=== PATIENT | male | born 1970 | race Caucasian/White ===

== ENCOUNTER 2022-03-11 13:16 | Emergency (ER) | payer SELFPAY ==
[2022-03-11] VITALS (9 sets, daily range): BP systolic 150–179; BP diastolic 89–110; PULSE 65–90; RESP 18; TEMP 36.2–36.6; O2SAT 96–98; BMI 23.7
--- NOTE | 2022-03-11 13:49 | ED_ITS ---
HPI - Abdominal Pain General Time Seen by Provider: 13:49 <Lizet Donis MD - Last Filed: 03/11/22 15:54> Date Seen: 03/11/22 <Lizet Donis MD - Last Filed: 03/11/22 15:54> Chief Complaint: Abdominal Pain <Lizet Donis MD - Last Filed: 03/11/22 15:54> Stated Complaint: Abdominal Pain <Lizet Donis MD - Last Filed: 03/11/22 15:54> Time Seen by Provider: 03/11/22 13:34 <Lizet Donis MD - Last Filed: 03/11/22 15:54> Source: patient and RN notes reviewed <Lizet Donis MD - Last Filed: 03/11/22 15:54> Mode of arrival: ambulatory <Lizet Donis MD - Last Filed: 03/11/22 15:54> History of Present Illness HPI narrative: This 51-year-old male is coming in with epigastric pain that is generalized in. He has pain in his abdomen that has been there for maybe 13 or 14 days now. He did go to clinic yesterday and reportedly had what he states was a normal CT of his abdomen and pelvis. He states he drank water and had IV contrast. He was started on omeprazole yesterday, has taken 2 doses without relief. Prior to this he has tried Tylenol, ibuprofen, Rolaids/Tums without relief. He is having no reflux or regurgitation symptoms. Eating makes his symptoms worse, has not had nausea with this. Has had some vomiting prior. But not now. He has had some constipation and does endorse some irregular bowel movements but did have a normal bowel movement earlier. No blood in vomit or bowels. He does note historically he has had some blood in bowel movements. He has never had a colonoscopy. There has been no fevers. At times he has felt chilled. He had not noticed any urinary symptoms until after he had the IV contrast and drink water yesterday, has noticed some urgency. He points right to the epigastric area and states now it is starting to generalize out into the abdomen. He states he had labs done yesterday as well. Patient has never had any abdominal surgery. He is not aware of any family history that relates to abdominal pain. He has drank maybe 3 or 4 times in the last 3 months but does endorse that he has had a significant history of drinking. He states he has been actively trying to cut down. I have his CT reports from yesterday done with oral water and IV contrast with the impression no bowel obstruction or evidence of enteritis/colitis. 2 cm hypodense pancreatic body lesion. Pre and post-contrast MRI of the pancreas recommended. His labs from yesterday showed sodium of 136 potassium 4.8 glucose of 90 creatinine of 0.74 with a GFR greater than 90 white blood count mildly elevated at 13,800 thousand eight hundred hemoglobin good at 15.1 ALT of 19 AST of 16 total bilirubin 0.3 alkaline phosphatase 79 lipase at 65.7. C-reactive protein 0.28 sed rate at 24 <Lizet Donis MD - Last Filed: 03/11/22 15:54> Related Data Home Medications: Home Medications Medication Instructions Recorded Confirmed omeprazole 20 mg capsule,delayed 20 mg PO DAILY 03/11/22 03/11/22 release <Lizet Donis MD - Last Filed: 03/11/22 15:54> Allergies/Adverse Reactions: Allergies Allergy/AdvReac Type Severity Reaction Status Date / Time codeine Allergy Verified 03/11/22 13:30 <Lizet Donis MD - Last Filed: 03/11/22 15:54> [facility] Social History: Social History Smoking Status: Current every day smoker What tobacco products do you use: cigarettes Smoking packs per day: 1.5 Smoking cigarettes per day: 30.0 Years smoked: 40 Smoking pack-years: 60.00 Do you use any of these nicotine containing products: None Second hand tobacco smoke exposure: Yes How often do you have a drink containing alcohol: monthly or less How many standard drinks containing alcohol do you have on a typical day: 7 to 9 How often do you have six or more drinks on one occasion: Less than monthly AUDIT-C Alcohol total score: 5 Non-prescribed substance use: denies use service: No <Lizet Donis MD - Last Filed: 03/11/22 15:54> Exam Const: Vital Signs, click to edit/add: Vital Signs - 24 hr 03/11/22 13:31 Temperature 97.8 F Pulse Rate [Right Pulse Oximeter] 90 Respiratory Rate 18 Blood Pressure [Ri ght Upper Arm] 151/95 H Pulse Oximetry 97 Oxygen Delivery Me thod Room Air <Lizet Donis MD - Last Filed: 03/11/22 15:54> Vital Signs, click to edit/add: Vital Signs - 24 hr 03/11/22 13:31 Temperature 97.8 F Pulse Rate [Right Pulse Oximeter] 90 Respiratory Rate 18 Blood Pressure [Ri ght Upper Arm] 151/95 H Pulse Oximetry 97 Oxygen Delivery Me thod Room Air <Janet Yoder MD - Last Filed: 03/15/22 11:52> Course Reevaluation(s) Reevaluation #1: Reviewed with him that his lipase would seemingly be escalating from yesterday's lab. He is now slightly elevated at 305. Rest of his labs here are looking normal albeit troponin is still pending. Am doubtful that this is cardiac etiology however. We are going to proceed with MRI with and without contrast due to this pancreatic lesion. Patient is in agreement to proceed. His pain is improved but still significant thus I will re-dose the fentanyl. <Lizet Donis MD - Last Filed: 03/11/22 15:54> Time: 15:09 <Lizet Donis MD - Last Filed: 03/11/22 15:54> Reevaluation #2: Reviewed MRI results with patient. Cystic lesion in tail of pancreas, indeterminate. Unlikely the cause of his pain at this time. Pain has been constant for 2 weeks, would doubt that this is gallbladder in etiology. Gastric ulcer or gastritis seems more likely at this time all things considered with otherwise negative CT. Recommendation at this time is to continue with the PPI, follow up with his primary doctor as planned. Consider EGD not improving. He will need follow-up with a hepatobiliary surgeon per our surgeon recommendation. If worsening in the interim, return to the emergency department. <Janet Yoder MD - Last Filed: 03/15/22 11:52> Consultations Consultation #1: Discussed care with iris Vanessa for general surgery. She did not feel that pancreatic lesion was likely the cause of his symptoms based on its location and description. Recommendation was for outpatient follow-up with hepatobiliary surgeon, and that this would be best achieved through primary care followup 1st. <Janet Yoder MD - Last Filed: 03/15/22 11:52> Vital Signs Vital signs: Initial Vital Signs Temperature 97.8 F 03/11/22 13:31 Temperature Source Temporal Artery Scan 03/11/22 13:31 Pulse Rate 90 03/11/22 13:31 Respiratory Rate 18 03/11/22 13:31 Blood Pressure 151/95 H 03/11/22 13:31 Blood Pressure Mean 113 03/11/22 13:31 Blood Pressure Position Sitting 03/11/22 13:31 Pulse Oximetry 97 03/11/22 13:31 Oxygen Delivery Method 03/11/22 13:31 Vital Signs Temperature 97.8 F 03/11/22 13:31 Pulse Rate 90 03/11/22 13:31 Respiratory Rate 18 03/11/22 13:31 Blood Pressure 151/95 H 03/11/22 13:31 Pulse Oximetry 97 03/11/22 13:31 Oxygen Delivery Method 03/11/22 13:31 Temperature 97.2 F L 03/11/22 15:30 Pulse Rate 65 03/11/22 18:30 Respiratory Rate 18 03/11/22 16:30 Blood Pressure 168/105 H 03/11/22 18:30 Pulse Oximetry 97 03/11/22 18:30 Oxygen Delivery Method 03/11/22 17:30 <Lizet Donis MD - Last Filed: 03/11/22 15:54> Initial Vital Signs Temperature 97.8 F 03/11/22 13:31 Temperature Source Temporal Artery Scan 03/11/22 13:31 Pulse Rate 90 03/11/22 13:31 Respiratory Rate 18 03/11/22 13:31 Blood Pressure 151/95 H 03/11/22 13:31 Blood Pressure Mean 113 03/11/22 13:31 Blood Pressure Position Sitting 03/11/22 13:31 Pulse Oximetry 97 03/11/22 13:31 Oxygen Delivery Method 03/11/22 13:31 Vital Signs Temperature 97.8 F 03/11/22 13:31 Pulse Rate 90 03/11/22 13:31 Respiratory Rate 18 03/11/22 13:31 Blood Pressure 151/95 H 03/11/22 13:31 Pulse Oximetry 97 03/11/22 13:31 Oxygen Delivery Method 03/11/22 13:31 Temperature 97.2 F L 03/11/22 15:30 Pulse Rate 65 03/11/22 18:30 Respiratory Rate 18 03/11/22 16:30 Blood Pressure 168/105 H 03/11/22 18:30 Pulse Oximetry 97 03/11/22 18:30 Oxygen Delivery Method 03/11/22 17:30 <Janet Yoder MD - Last Filed: 03/15/22 11:52> MDM - Abdominal Pain Lab Data Attestation: I reviewed the patient's lab results. <Lizet Donis MD - Last Filed: 03/11/22 15:54> Labs: Lab Results 03/11/22 03/11/22 03/11/22 Range/Units 14:00 14:00 14:00 WBC 10.53 (4.50-11.00) K/uL RBC 4.16 L (4.30-5.90) m/uL Hgb 13.2 L (13.5-17.5) gm/dL Hct 38.1 (37.0-53.0) % MCV 92 (80-100) fL MCH 32 (26-34) pg MCHC 35 (32-36) gm/dL RDW Coeff of Spring 13.4 (11.5-15.5) % Plt Count 273 (140-440) K/uL Neut % (Auto) 71.8 (42.0-72.0) % Lymph % (Auto) 17.0 L (20-44) % Harvey % (Auto) 9.3 (0.0-11.0) % Eos % (Auto) 0.8 (0.0-7.0) % Baso % (Auto) 0.5 (0.0-3.0) % Neut # (Auto) 7.57 H (1.7-7.0) K/uL Lymph # (Auto) 1.80 (0.90-2.90) K/uL Harvey # (Auto) 1.00 H (0.00-0.90) K/UL Eos # (Auto) 0.08 (0.00-0.50) K/uL Baso # (Auto) 0.05 (0.00-0.30) K/uL Abs Immat Gran (auto) 0.06 (0.00-0.30) K/uL ESR 13 (2-15) mm/hr Sodium 133 L (135-149) mmol/L Potassium 3.6 (3.6-5.1) mmol/L Chloride 102 (96-114) mmol/L Carbon Dioxide 24 (20-32) mmol/L BUN 8 (7-30) mg/dL Creatinine 0.6 (0.5-1.5) mg/dL Estimated Creat Clear 161.67 Estimated GFR 118 ml/min Glucose 115 (60-115) mg/dL Lactate (0.5-1.9) mmol/L Calcium 8.9 (8.4-10.6) mg/dL Total Bilirubin 0.5 (0.1-1.5) mg/dL AST 21 (12-35) U/L ALT 15 (4-50) U/L Alkaline Phosphatase 99 (40-150) U/L Troponin I (0.01-0.04) ng/mL C-Reactive Protein 1.4 H (0.5-1.0) mg/dL Total Protein 7.1 (6.0-8.3) g/dL Albumin 3.8 (3.3-5.0) g/dL Lipase 305 H (23-300) U/L Urine Color (Yellow) Urine Appearance (Clear) Urine pH (5.0-8.5) Ur Specific [place] (1.000-1.030) Urine Protein (Negative) Urine Glucose (UA) (Negative) Urine Ketones (Negative) Urine Blood (Negative) Urine Nitrite (Negative) Urine Bilirubin (Negative) Urine Urobilinogen (0.2-1.0) Ur Leukocyte Esterase (Negative) Urine RBC (0-2) Urine WBC (0-5) Ur Squamous Epith Cells (None-Few) Urine Bacteria (None) Hyaline Casts (None-Few) Ethyl Alcohol < 0.01 L (0.01-0.03) % SARS-CoV-2 (PCR) (Negative) 03/11/22 03/11/22 03/11/22 Range/Units 14:00 14:00 14:09 WBC (4.50-11.00) K/uL RBC (4.30-5.90) m/uL Hgb (13.5-17.5) gm/dL Hct (37.0-53.0) % MCV (80-100) fL MCH (26-34) pg MCHC (32-36) gm/dL RDW Coeff of Spring (11.5-15.5) % Plt Count (140-440) K/uL Neut % (Auto) (42.0-72.0) % Lymph % (Auto) (20-44) % Harvey % (Auto) (0.0-11.0) % Eos % (Auto) (0.0-7.0) % Baso % (Auto) (0.0-3.0) % Neut # (Auto) (1.7-7.0) K/uL Lymph # (Auto) (0.90-2.90) K/uL Harvey # (Auto) (0.00-0.90) K/UL Eos # (Auto) (0.00-0.50) K/uL Baso # (Auto) (0.00-0.30) K/uL Abs Immat Gran (auto) (0.00-0.30) K/uL ESR (2-15) mm/hr Sodium (135-149) mmol/L Potassium (3.6-5.1) mmol/L Chloride (96-114) mmol/L Carbon Dioxide (20-32) mmol/L BUN (7-30) mg/dL Creatinine (0.5-1.5) mg/dL Estimated Creat Clear Estimated GFR ml/min Glucose (60-115) mg/dL Lactate 0.6 (0.5-1.9) mmol/L Calcium (8.4-10.6) mg/dL Total Bilirubin (0.1-1.5) mg/dL AST (12-35) U/L ALT (4-50) U/L Alkaline Phosphatase (40-150) U/L Troponin I < 0.01 L (0.01-0.04) ng/mL C-Reactive Protein (0.5-1.0) mg/dL Total Protein (6.0-8.3) g/dL Albumin (3.3-5.0) g/dL Lipase (23-300) U/L Urine Color (Yellow) Urine Appearance (Clear) Urine pH (5.0-8.5) Ur Specific [place] (1.000-1.030) Urine Protein (Negative) Urine Glucose (UA) (Negative) Urine Ketones (Negative) Urine Blood (Negative) Urine Nitrite (Negative) Urine Bilirubin (Negative) Urine Urobilinogen (0.2-1.0) Ur Leukocyte Esterase (Negative) Urine RBC (0-2) Urine WBC (0-5) Ur Squamous Epith Cells (None-Few) Urine Bacteria (None) Hyaline Casts (None-Few) Ethyl Alcohol (0.01-0.03) % SARS-CoV-2 (PCR) Negative SARS-CoV-2 (Negative) 03/11/22 Range/Units 14:15 WBC (4.50-11.00) K/uL RBC (4.30-5.90) m/uL Hgb (13.5-17.5) gm/dL Hct (37.0-53.0) % MCV (80-100) fL MCH (26-34) pg MCHC (32-36) gm/dL RDW Coeff of Spring (11.5-15.5) % Plt Count (140-440) K/uL Neut % (Auto) (42.0-72.0) % Lymph % (Auto) (20-44) % Harvey % (Auto) (0.0-11.0) % Eos % (Auto) (0.0-7.0) % Baso % (Auto) (0.0-3.0) % Neut # (Auto) (1.7-7.0) K/uL Lymph # (Auto) (0.90-2.90) K/uL Harvey # (Auto) (0.00-0.90) K/UL Eos # (Auto) (0.00-0.50) K/uL Baso # (Auto) (0.00-0.30) K/uL Abs Immat Gran (auto) (0.00-0.30) K/uL ESR (2-15) mm/hr Sodium (135-149) mmol/L Potassium (3.6-5.1) mmol/L Chloride (96-114) mmol/L Carbon Dioxide (20-32) mmol/L BUN (7-30) mg/dL Creatinine (0.5-1.5) mg/dL Estimated Creat Clear Estimated GFR ml/min Glucose (60-115) mg/dL Lactate (0.5-1.9) mmol/L Calcium (8.4-10.6) mg/dL Total Bilirubin (0.1-1.5) mg/dL AST (12-35) U/L ALT (4-50) U/L Alkaline Phosphatase (40-150) U/L Troponin I (0.01-0.04) ng/mL C-Reactive Protein (0.5-1.0) mg/dL Total Protein (6.0-8.3) g/dL Albumin (3.3-5.0) g/dL Lipase (23-300) U/L Urine Color Yellow (Yellow) Urine Appearance Clear (Clear) Urine pH 7.0 (5.0-8.5) Ur Specific [place] 1.020 (1.000-1.030) Urine Protein Negative (Negative) Urine Glucose (UA) Negative (Negative) Urine Ketones 2+ A (Negative) Urine Blood Trace-intact A (Negative) Urine Nitrite Negative (Negative) Urine Bilirubin Negative (Negative) Urine Urobilinogen 0.2 (0.2-1.0) Ur Leukocyte Esterase Negative (Negative) Urine RBC 2-5 A (0-2) Urine WBC 0-2 (0-5) Ur Squamous Epith Cells None (None-Few) Urine Bacteria None (None) Hyaline Casts Few (None-Few) Ethyl Alcohol (0.01-0.03) % SARS-CoV-2 (PCR) (Negative) <Lizet Donis MD - Last Filed: 03/11/22 15:54> Lab Results 03/11/22 03/11/22 03/11/22 Range/Units 14:00 14:00 14:00 WBC 10.53 (4.50-11.00) K/uL RBC 4.16 L (4.30-5.90) m/uL Hgb 13.2 L (13.5-17.5) gm/dL Hct 38.1 (37.0-53.0) % MCV 92 (80-100) fL MCH 32 (26-34) pg MCHC 35 (32-36) gm/dL RDW Coeff of Spring 13.4 (11.5-15.5) % Plt Count 273 (140-440) K/uL Neut % (Auto) 71.8 (42.0-72.0) % Lymph % (Auto) 17.0 L (20-44) % Harvey % (Auto) 9.3 (0.0-11.0) % Eos % (Auto) 0.8 (0.0-7.0) % Baso % (Auto) 0.5 (0.0-3.0) % Neut # (Auto) 7.57 H (1.7-7.0) K/uL Lymph # (Auto) 1.80 (0.90-2.90) K/uL Harvey # (Auto) 1.00 H (0.00-0.90) K/UL Eos # (Auto) 0.08 (0.00-0.50) K/uL Baso # (Auto) 0.05 (0.00-0.30) K/uL Abs Immat Gran (auto) 0.06 (0.00-0.30) K/uL ESR 13 (2-15) mm/hr Sodium 133 L (135-149) mmol/L Potassium 3.6 (3.6-5.1) mmol/L Chloride 102 (96-114) mmol/L Carbon Dioxide 24 (20-32) mmol/L BUN 8 (7-30) mg/dL Creatinine 0.6 (0.5-1.5) mg/dL Estimated Creat Clear 161.67 Estimated GFR 118 ml/min Glucose 115 (60-115) mg/dL Lactate (0.5-1.9) mmol/L Calcium 8.9 (8.4-10.6) mg/dL Total Bilirubin 0.5 (0.1-1.5) mg/dL AST 21 (12-35) U/L ALT 15 (4-50) U/L Alkaline Phosphatase 99 (40-150) U/L Troponin I (0.01-0.04) ng/mL C-Reactive Protein 1.4 H (0.5-1.0) mg/dL Total Protein 7.1 (6.0-8.3) g/dL Albumin 3.8 (3.3-5.0) g/dL Lipase 305 H (23-300) U/L Urine Color (Yellow) Urine Appearance (Clear) Urine pH (5.0-8.5) Ur Specific [place] (1.000-1.030) Urine Protein (Negative) Urine Glucose (UA) (Negative) Urine Ketones (Negative) Urine Blood (Negative) Urine Nitrite (Negative) Urine Bilirubin (Negative) Urine Urobilinogen (0.2-1.0) Ur Leukocyte Esterase (Negative) Urine RBC (0-2) Urine WBC (0-5) Ur Squamous Epith Cells (None-Few) Urine Bacteria (None) Hyaline Casts (None-Few) Ethyl Alcohol < 0.01 L (0.01-0.03) % SARS-CoV-2 (PCR) (Negative) 03/11/22 03/11/22 03/11/22 Range/Units 14:00 14:00 14:09 WBC (4.50-11.00) K/uL RBC (4.30-5.90) m/uL Hgb (13.5-17.5) gm/dL Hct (37.0-53.0) % MCV (80-100) fL MCH (26-34) pg MCHC (32-36) gm/dL RDW Coeff of Spring (11.5-15.5) % Plt Count (140-440) K/uL Neut % (Auto) (42.0-72.0) % Lymph % (Auto) (20-44) % Harvey % (Auto) (0.0-11.0) % Eos % (Auto) (0.0-7.0) % Baso % (Auto) (0.0-3.0) % Neut # (Auto) (1.7-7.0) K/uL Lymph # (Auto) (0.90-2.90) K/uL Harvey # (Auto) (0.00-0.90) K/UL Eos # (Auto) (0.00-0.50) K/uL Baso # (Auto) (0.00-0.30) K/uL Abs Immat Gran (auto) (0.00-0.30) K/uL ESR (2-15) mm/hr Sodium (135-149) mmol/L Potassium (3.6-5.1) mmol/L Chloride (96-114) mmol/L Carbon Dioxide (20-32) mmol/L BUN (7-30) mg/dL Creatinine (0.5-1.5) mg/dL Estimated Creat Clear Estimated GFR ml/min Glucose (60-115) mg/dL Lactate 0.6 (0.5-1.9) mmol/L Calcium (8.4-10.6) mg/dL Total Bilirubin (0.1-1.5) mg/dL AST (12-35) U/L ALT (4-50) U/L Alkaline Phosphatase (40-150) U/L Troponin I < 0.01 L (0.01-0.04) ng/mL C-Reactive Protein (0.5-1.0) mg/dL Total Protein (6.0-8.3) g/dL Albumin (3.3-5.0) g/dL Lipase (23-300) U/L Urine Color (Yellow) Urine Appearance (Clear) Urine pH (5.0-8.5) Ur Specific [place] (1.000-1.030) Urine Protein (Negative) Urine Glucose (UA) (Negative) Urine Ketones (Negative) Urine Blood (Negative) Urine Nitrite (Negative) Urine Bilirubin (Negative) Urine Urobilinogen (0.2-1.0) Ur Leukocyte Esterase (Negative) Urine RBC (0-2) Urine WBC (0-5) Ur Squamous Epith Cells (None-Few) Urine Bacteria (None) Hyaline Casts (None-Few) Ethyl Alcohol (0.01-0.03) % SARS-CoV-2 (PCR) Negative SARS-CoV-2 (Negative) 03/11/22 Range/Units 14:15 WBC (4.50-11.00) K/uL RBC (4.30-5.90) m/uL Hgb (13.5-17.5) gm/dL Hct (37.0-53.0) % MCV (80-100) fL MCH (26-34) pg MCHC (32-36) gm/dL RDW Coeff of Spring (11.5-15.5) % Plt Count (140-440) K/uL Neut % (Auto) (42.0-72.0) % Lymph % (Auto) (20-44) % Harvey % (Auto) (0.0-11.0) % Eos % (Auto) (0.0-7.0) % Baso % (Auto) (0.0-3.0) % Neut # (Auto) (1.7-7.0) K/uL Lymph # (Auto) (0.90-2.90) K/uL Harvey # (Auto) (0.00-0.90) K/UL Eos # (Auto) (0.00-0.50) K/uL Baso # (Auto) (0.00-0.30) K/uL Abs Immat Gran (auto) (0.00-0.30) K/uL ESR (2-15) mm/hr Sodium (135-149) mmol/L Potassium (3.6-5.1) mmol/L Chloride (96-114) mmol/L Carbon Dioxide (20-32) mmol/L BUN (7-30) mg/dL Creatinine (0.5-1.5) mg/dL Estimated Creat Clear Estimated GFR ml/min Glucose (60-115) mg/dL Lactate (0.5-1.9) mmol/L Calcium (8.4-10.6) mg/dL Total Bilirubin (0.1-1.5) mg/dL AST (12-35) U/L ALT (4-50) U/L Alkaline Phosphatase (40-150) U/L Troponin I (0.01-0.04) ng/mL C-Reactive Protein (0.5-1.0) mg/dL Total Protein (6.0-8.3) g/dL Albumin (3.3-5.0) g/dL Lipase (23-300) U/L Urine Color Yellow (Yellow) Urine Appearance Clear (Clear) Urine pH 7.0 (5.0-8.5) Ur Specific [place] 1.020 (1.000-1.030) Urine Protein Negative (Negative) Urine Glucose (UA) Negative (Negative) Urine Ketones 2+ A (Negative) Urine Blood Trace-intact A (Negative) Urine Nitrite Negative (Negative) Urine Bilirubin Negative (Negative) Urine Urobilinogen 0.2 (0.2-1.0) Ur Leukocyte Esterase Negative (Negative) Urine RBC 2-5 A (0-2) Urine WBC 0-2 (0-5) Ur Squamous Epith Cells None (None-Few) Urine Bacteria None (None) Hyaline Casts Few (None-Few) Ethyl Alcohol (0.01-0.03) % SARS-CoV-2 (PCR) (Negative) <Janet Yoder MD - Last Filed: 03/15/22 11:52> ECG Data Attestation: I personally reviewed and interpreted this ECG as follows: (Sinus rhythm with sinus arrhythmia, 79 beats per minute. No ischemia noted.) <Lizet Donis MD - Last Filed: 03/11/22 15:54> ECG interpretation date: 03/11/22 <Lizet Donis MD - Last Filed: 03/11/22 15:54> Discharge Plan Discharge Clinical Impression: Acute epigastric pain <Lizet Donis MD - Last Filed: 03/11/22 15:54> Patient Disposition: Home, Self-Care <Lizet Donis MD - Last Filed: 03/11/22 15:54> Condition: Stable <Lizet Donis MD - Last Filed: 03/11/22 15:54> Instructions: Epigastric Pain (ED) <Lizet Donis MD - Last Filed: 03/11/22 15:54> Additional Instructions: Follow-up tomorrow as planned in clinic. Please ask them to help arrange follow-up with a hepato-biliary surgeon. Radiology read for your abdominal MRI attached. Continue the omeprazole as recommended. Avoid NSAIDs for now. Avoid alcohol. Currently, your labs and imaging do not suggest significant pancreatic inflammation, however if you have significant worsening pain, vomiting, fever or other worsening, return to the emergency department. <Lizet Donis MD - Last Filed: 03/11/22 15:54> Prescriptions: No Action omeprazole 20 mg capsule,delayed release(DR/EC) 20 mg PO DAILY <Lizet Donis MD - Last Filed: 03/11/22 15:54> Follow Up/Referrals: Provider,Not a Local [Primary Care Provider] - <Lizet Donis MD - Last Filed: 03/11/22 15:54> Stand Alone Forms: [employer] Info Instructions <Lizet Donis MD - Last Filed: 03/11/22 15:54>
[2022-03-11 14:12] LABS: Lactate* 0.6 mmol/L (0.5-1.9)
[2022-03-11] MEDS: 0.9 % SODIUM CHLORIDE 1000 ml 1,000 ML 500 ML IV (14:20)
[2022-03-11] MEDS: ONDANSETRON 2 MG/ML inj 4 MG IVP (14:21)
[2022-03-11] MEDS: fentaNYL 100 MCG/2 ML inj 50 MCG IVP ×2 (14:23→15:32)
[2022-03-11 14:30] LABS: Basophils Absolute Auto 0.05 K/uL (0.00-0.30); Basophils Percent Auto 0.5 % (0.0-3.0); Eosinophils Absolute Auto 0.08 K/uL (0.00-0.50); Eosinophils Percent Auto 0.8 % (0.0-7.0); Hematocrit 38.1 % (37.0-53.0); Hemoglobin* 13.2 gm/dL (13.5-17.5); Immature Granulocytes Abs Auto 0.06 K/uL (0.00-0.30); Mean Corpuscular HGB Conc 35 gm/dL (32-36); Mean Corpuscular Hemoglobin 32 pg (26-34); Mean Corpuscular Volume 92 fL (80-100); Monocytes Percent Auto 9.3 % (0.0-11.0); Neutrophils Absolute Auto 7.57 K/uL (1.7-7.0); Neutrophils Percent Auto 71.8 % (42.0-72.0); Platelet Count* 273 K/uL (140-440); RDW Coefficient of Variation % 13.4 % (11.5-15.5); Red Blood Count 4.16 m/uL (4.30-5.90); White Blood Count* 10.53 K/uL (4.50-11.00)
[2022-03-11 14:35] LABS: Slide Review Reflex No
[2022-03-11 14:40] LABS: Appearance Urine Clear (Clear); Bilirubin Urine Negative (Negative); Blood Urine Trace-intact (Negative); Color Urine Yellow (Yellow); Glucose Urine Negative (Negative); Ketones Urine 2+ (Negative); Leukocyte Esterase Urine Negative (Negative); Nitrite Urine Negative (Negative); Protein Urine Negative (Negative); Urobilinogen Urine 0.2 (0.2-1.0)
[2022-03-11 14:41] LABS: Albumin* 3.8 g/dL (3.3-5.0); Chloride* 102 mmol/L (96-114); Sodium* 133 mmol/L (135-149)
[2022-03-11 14:42] LABS: Potassium* 3.6 mmol/L (3.6-5.1)
[2022-03-11 14:44] LABS: Alkaline Phosphatase* 99 U/L (40-150); Aspartate Amino Transferase* 21 U/L (12-35); Bilirubin Total* 0.5 mg/dL (0.1-1.5); Carbon Dioxide* 24 mmol/L (20-32); Creatinine* 0.6 mg/dL (0.5-1.5); Est. Creatinine Clearance* 161.67; Estimated Glomerular Filt Rate 118 ml/min; Total Protein* 7.1 g/dL (6.0-8.3)
[2022-03-11 14:45] LABS: Alanine Aminotransferase* 15 U/L (4-50); Blood Urea Nitrogen* 8 mg/dL (7-30); Calcium* 8.9 mg/dL (8.4-10.6); Glucose* 115 mg/dL (60-115); Lipase* 305 U/L (23-300)
[2022-03-11 14:47] LABS: C Reactive Protein* 1.4 mg/dL (0.5-1.0)
[2022-03-11 14:48] LABS: Ethanol* < 0.01 % (0.01-0.03)
[2022-03-11 15:03] LABS: SARS PCR* Negative SARS-CoV-2 (Negative)
--- NOTE | 2022-03-11 15:04 | CRLHL7_ITS ---
For Patients: As a result of the Century Cures Act, medical imaging exams and procedure reports are released immediately into your electronic medical record. You may view this report before your referring provider. If you have questions, please contact your health care provider. INDICATION: Worsening epigastric pain. 2 cm mass on pancreas CT done at [facility]. TECHNIQUE: MRI of the abdomen was performed with the following sequences: axial and coronal HASTE, axial T2 fat saturated, axial diffusion, axial T1 in and out of phase, 3-point [place], multiecho T2*, axial and coronal 3D T1 weighted before and after intravenous contrast administration, and coronal thin slab MRCP 3D. Contrast: 15 mL of Dotarem. COMPARISON: None. FINDINGS: Lower chest: Unremarkable. Liver: The signal intensity of the liver is normal. No dropout between in- and opposed phase to suggest steatosis. No T2 hyperintense or enhancing lesions. Gallbladder and bile ducts: Normally distended gallbladder. No T2 filling defects to suggest gallstones. No wall thickening or pericholecystic fluid. The common bile duct is normal in caliber. Spleen: Unremarkable. Small adjacent splenule. Pancreas: Normal parenchymal enhancement. No enhancing masses. Lesion in the pancreatic tail is homogeneously T2 hyperintense and measures approximately 2.1 x 1.5 cm (6/20). This lesion does not show enhancement on the post-contrast images. The MRCP sequences shows that this lesion does not connect to the main pancreatic duct. No areas of nodularity or apparent internal septations. Adrenal glands: Unremarkable. No nodules. Kidneys and Ureters: Normal size. Symmetric cortical enhancement. No solid or cystic masses. No hydronephrosis. Lymph Nodes and Retroperitoneum: Unremarkable. Vasculature: Unremarkable. GI tract: Unremarkable. Normal in caliber. Peritoneum/Abdominal Wall: Unremarkable. No mass or infiltration. No free air or free fluid. Bones: No abnormal marrow signal. IMPRESSION: 1. Simple appearing cystic lesion in the pancreatic tail does not connect to the main pancreatic duct. Differential possibilities include epithelial pancreatic cyst or possibly unilocular serous cystic neoplasm. Location within the pancreatic parenchyma makes a pseudocyst from prior pancreatitis is possible but unlikely. Mucinous cystic neoplasm or IPMN are less likely. 2. No other significant MRI abnormality in the abdomen. Dictated by Prabhjot Hernadez MD @ 03/11/2022 5:52:03 PM (Electronically Signed)
[2022-03-11 15:15] LABS: Troponin I* < 0.01 ng/mL (0.01-0.04)
[2022-03-11 15:57] LABS: Hyaline Casts Urine Few (None-Few); WBC Urine 0-2 (0-5)
[2022-03-11] MEDS: MORPHINE 4 MG/ML INJ IVP (16:05)
[2022-03-11 16:37] LABS: Erythrocyte SedimentationRate* 13 mm/hr (2-15)
--- NOTE | 2022-03-11 16:45 | ED.NURSE ---
Patient to radiology for MRI, wheelchair.
--- NOTE | 2022-03-11 17:26 | ED.NURSE ---
Patient returned from MRI.
== END 2022-03-11 18:59 | disposition home or self-care (01) ==
PROVIDERS: Family Medicine; Emergency Provider Emergency Medicine
DX: R10.13 Epigastric pain (principal)
CPT/HCPCS: 36415; 74183; 80053; 81001; 82077; 83605; 83690; 84484; 85025; 85651; 86140; 87635; 93005; 96374; 96375; 96376; 99284; 99285; A9575; J2270; J2405; J3010; J7030

== ENCOUNTER 2025-03-03 00:54 | Outpatient (CLI) | payer MEDICAID, SELFPAY | END 2025-03-03 00:55 | disposition home or self-care (01) | LOC: AMB 03-09 09:29 | PROVIDERS: Visit Provider Family Medicine | DX: S09.90XA Unspecified injury of head, initial encounter (principal); Y04.2XXA Assault by strike against or bumped into by another person, initial encounter; Y93.9 Activity, unspecified; Y92.89 Other specified places as the place of occurrence of the external cause | CPT/HCPCS: A0425; A0427 ==

== ENCOUNTER 2025-03-03 01:39 | Emergency (ER) | payer MEDICAID, SELFPAY ==
[2025-03-03 01:40] VITALS: BP 125/85; PULSE 100; RESP 18; TEMP 36.7; O2SAT 96; BMI 24.4
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
--- OUTSIDE RECORDS SUMMARY | 2025-03-03 01:41 | XMS_ITS | Clinical Summary ---
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 [facility] Allergies No known active allergies Medications ibuprofen (MOTRIN) 200 MG tablet Take 1-2 Tablets (200-400 mg) by mouth every 6 hours as needed for Pain. Active polyethylene glycol 3350 (GLYCOLAX) 17 GM/SCOOP powderIndicatio ns:Constipation Fill to top of indicated section in lid (17 grams). Mix in 4 to 8 ounces of a beverage and drink once daily as directed. Indications: Constipation 510 g 3 10/08/2023 1:02 PM CDT 4 Active sennosides-docu sate sodium (SENOKOT S) 8.6-50 MG per tabletIndicatio ns:Constipation Take 1 Tablet by mouth daily as needed for Constipation. Indications: Constipation 90 Tablet 3 10/08/2023 1:02 PM CDT 4 Active nicotine (NICODERM CQ) 14 MG/24HR patchIndication s:Nicotine Dependence Apply 1 Patch to skin daily. Remove old patch prior to new patch application. Indications: Nicotine Addiction. 14 Each 10/08/2023 1:02 PM CDT 4 Active Active Problems Problem Noted Date Diagnosed Date Slow transit constipation 10/06/2023 Nicotine dependence 10/06/2023 Idiopathic acute pancreatitis without infection or necrosis 10/06/2023 Anxiety state 05/19/2008 Resolved Problems Problem Noted Date Diagnosed Date Resolved Date Alcohol-induced acute pancreatitis 10/06/2023 10/06/2023 Social History Tobacco Use Types Packs/Day Years Used Date Smoking Tobacco: Never Assessed Humiliation, Afraid, Rape, and Kick questionnair e Answer Date Recorded Fear of Current or Ex-Partner Not on file Emotionally Abused Not on file 10/06/2023 Within the last year, have y ou been kicked, hit, slapped, or otherwise physically hurt by your partner or ex-partner? No 10/06/2023 Within the last year, have y ou been raped or forced to have any kind of sexual activity by your partner or ex-partner? No 10/06/2023 Sex and Gender Information Value Date Recorded Sex Assigned at Not on file Legal Sex Male 7:26 AM CDT Gender Identity Not on file Sexual Orientation Not on file Last Filed Vital Signs Vital Sign Reading Time Taken Comments Blood Pressure 144/94 10/08/2023 7:51 AM CDT Pulse 66 10/08/2023 7:51 AM CDT Temperature 36.7 C (98.1 F) 10/08/2023 7:51 AM CDT Respiratory Rate 16 10/08/2023 7:51 AM CDT Oxygen Saturation 97% 10/08/2023 7:51 AM CDT Inhaled Oxygen Concentration - - Weight 88.9 kg (196 lb) 10/06/2023 3:01 PM CDT Height 182.9 cm (6') 10/06/2023 3:01 PM CDT Body Mass Index 26.58 10/06/2023 3:01 PM CDT Plan of Treatment Health Maintenance Due Date Last Done Comments Colon Cancer Screening Plan Due 1971 Hep C Screening (Preventive Services) 1971 PSA Screening Discussion 1971 HIV Screening (Preventive Services) 1987 Adult Preventive Visit 1989 HepB Vaccine (1) 1990 DTaP/Tdap/Td Vaccine (3 - Tdap) 08/08/2020 08/08/2010, 07/27/1997 Pneumococcal Vaccine 50+ Yrs (1 of 1 - PCV) 2021 Zoster/Shingles Vaccine (1 o f 2) 2021 COVID-19 Vaccine (2023-2 5 season) 2024 Influenza Vaccine (#1) 2025 Cholesterol 10/06/2028 10/07/2023 Hib Vaccine Aged Out 07/27/1997 No longer eligi ble based on patient's age to complete this topic HepA Vaccine Aged Out No longer eligi ble based on patient's age to complete this topic IPV (Polio) Vaccine Aged Out No longe r eligible based on patient's age to complete this topic MCV4 Vaccine Aged Out No longer eligi ble based on patient's age to complete this topic Meningococcal B Vaccine Aged Out No l onger eligible based on patient's age to complete this topic Procedures Procedure Name Priority Date/Time Associated Diagnosis Comments LIPID PANEL & DIRECT LDL (IF NEEDED) Add-On 10/07/2023 7:02 AM CDT from Last 3 Months or Most Recently Relevant to Health Maintenance Results * (ABNORMAL) Lipid Panel & Direct LDL (if Needed) (10/07/2023 7:02 AM CDT) [facility] Cholesterol 195 0 - 199 mg/dL 10/07/2023 1:[address] [facility] Triglyceride 104 <=149 mg/dL 10/07/2023 1:[address] [facility] HDL Cholesterol 34(L) >=40 mg/dL 1:[address] [facility] LDL, Calculated 140(H) <130 mg/dL 1:[address] [facility] Non HDL Chol, Calculated 161(H) <=159 mg/dL 10/07/2023 1:[address] [facility] Cholesterol/HDL Ratio 5.7(H) <=5.0 10/07/2023 1:[address] [facility] Blood Venipuncture / Unknown 10/07/2023 7:02 AM CDT 10/07/2023 7:09 AM CDT Ramírez Santos MD LAB_[email or web address] Final Result [address] [facility], [facility] from Last 3 Months or Most Recently Relevant to Health Maintenance Insurance [facility] Advance Directives * Full Code (Latest Code Status on File) Date Activated Date Inactivated Comments 10/06/2023 3:05 PM 10/08/2023 3:21 PM Care Teams Lunch Truck Operator Relationship Specialty Start Date End Date No Primary/Referring, Phy PCP - General 10/06/23
--- OUTSIDE RECORDS SUMMARY | 2025-03-03 01:41 | XMS_ITS | Clinical Summary ---
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 0 09/25/2019 Active albuterol HFA 90 mcg/actuation inhalerIndicati ons:Cough Inhale 2 Puffs by mouth every 4 hours if needed. 1 Inhaler 09/25/2019 Active omeprazole (PRILOSEC) 40 mg Delayed-Release capsuleIndicati ons:Abdominal pain, epigastric Take 1 Capsule (40 mg) by mouth once daily before a meal. 60 Capsule 03/10/2022 Active Active Problems Problem Noted Date Diagnosed Date Lower back pain 02/10/2014 Anxiety state, unspecified 05/19/2008 Nicotine dependence Immunizations Immunization Administration Dates Next Due DTP-HIB 07/27/1997 Tdap 08/08/2010 Family History Medical History Relation Name Comments Good Health Brother Unknown Father Diabetes Maternal Aunt 1 Diabetes Maternal Aunt 2 Diabetes Maternal Aunt 3 Cancer Maternal Aunt 4 Anneita lymphoma Diabetes Maternal Aunt 4 Anneita Cancer Maternal Grandfather lung Diabetes Maternal Grandmother Hypertension Mother Other Mother COPD Good Health Sister Relation Name Status Comments Brother Father Maternal Aunt 1 Maternal Aunt 2 Maternal Aunt 3 Maternal Aunt 4 Anneita Maternal Grandfather Maternal Grandmother Mother Sister Social History Tobacco Use Types Packs/Day Years Used Date Smoking Tobacco: Every Day Cigarettes Smokeless Tobacco: Never Tobacco Cessation:Ready to Q uit: No; Counseling Given: Yes Alcohol Use Standard Drinks/Week Comments Yes 20 (1 standard drink = 0.6 oz pu re alcohol) Social Connections Answer Date Recorded Frequency of Communication with Friends and Fami ly Not on file 03/10/2022 Sex and Gender Information Value Date Recorded Sex Assigned at Not on file 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 Gender Identity Not on file Sexual Orientation Not on file Obstetrics History Last Filed Vital Signs Vital Sign Reading Time Taken Comments Blood Pressure 147/87 03/10/2022 7:49 AM CDT Pulse 106 03/10/2022 7:49 AM CDT Temperature 36.8 C (98.2 F) 03/10/2022 7:49 AM CDT Respiratory Rate 16 09/25/2019 10:4 9 AM 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 Oxygen Saturation 96% 03/10/2022 7:49 AM CDT Inhaled Oxygen Concentration - - Weight 79.3 kg (174 lb 12.8 oz) 03/10/2022 7:49 AM CDT Height 178.4 cm (5' 10.25) 05/19/2008 1:50 PM C DT Body Mass Index - - Plan of Treatment Health Maintenance Due Date Last Done Comments Depression screening for age 12+ 1983 HIV for age 15-65 1986 BMI (ht and wt on same day) for age 18+ 1989 Hepatitis C screening for age 18-79 1989 Hepatitis B series for 19+ ( 1 of 3 - 19+ 3-dose series) 1990 Colonoscopy through age 75 2016 Lipids for age 45-75 2016 Tetanus booster 08/08/2020 08/08/2010 Pneumococcal series for age 50+ (1 of 1 - PCV) 022 Zoster (shingles) series for age 50+ (1 of 2) 09/11/19 22 COVID-19 vaccine series ( - season) 4 Influenza Vaccine (#1) 2025 Insurance 19S JENISE LYNCH [id number] [employer] OF [place] [facility] [place] [address] * Guarantor: SYED LYNCH DS & BAT ONLY Account Type Relation to Patient Date of Phone Billing Address [facility] [address] [employer] [id number] [facility] [place]A [address] x5 (Home) [phone] x5 (Work) YAN ANDERSON [address] [address] [place] [address]
--- NOTE | 2025-03-03 01:48 | CRLHL7_ITS ---
For Patients: As a result of the Century Cures Act, medical imaging exams and procedure reports are released immediately into your electronic medical record. You may view this report before your referring provider. If you have questions, please contact your health care provider. INDICATION: Trauma, fall. TECHNIQUE: CT head without contrast. COMPARISON: None. FINDINGS: CSF spaces: Within normal limits for age. Brain parenchyma: The grubbs-white differentiation is maintained. No sign of mass, hemorrhage, or midline shift. Skull base and calvarium: The visualized paranasal sinuses and mastoid air cells demonstrate no acute or significant findings. The visualized orbits are grossly unremarkable. No skull fractures. Posterior scalp soft tissue swelling. IMPRESSION: 1. No acute intracranial abnormality. 2. Posterior scalp soft tissue swelling. No acute calvarial fracture. Please note that all CT scans at this facility use dose modulation, iterative reconstruction, and/or weight-based dosing when appropriate to reduce radiation dose to as low as reasonably achievable. Dictated by Kamran Hsieh MD @ 03/03/2025 2:12:17 AM (Electronically Signed)
[2025-03-03] MEDS: IBUPROFEN 200 MG TABLET 400 MG PO (02:10)
[2025-03-03 02:26] VITALS: BP 122/86; PULSE 90; RESP 18; O2SAT 98
== END 2025-03-03 02:36 | disposition home or self-care (01) ==
PROVIDERS: Emergency Provider Family Medicine
DX: S00.03XA Contusion of scalp, initial encounter (principal); F10.229 Alcohol dependence with intoxication, unspecified; I10 Essential (primary) hypertension; W03.XXXA Other fall on same level due to collision with another person, initial encounter
CPT/HCPCS: 70450; 99284; A9270